=== PATIENT | female | born 1945 | race Caucasian/White ===

== ENCOUNTER 2017-04-15 04:23 | Inpatient (IN) | END 2017-04-19 20:35 | disposition home or self-care (01) | DRG 682 ==

== ENCOUNTER 2017-04-25 17:45 | Inpatient (IN) | END 2017-05-02 19:50 | disposition home or self-care (01) | DRG 291 ==

== ENCOUNTER 2017-08-08 09:52 | Emergency (ER) | END 2017-08-08 12:42 | disposition home or self-care (01) ==

== ENCOUNTER 2018-06-21 21:52 | Emergency (ER) | payer MEDICARE, OTHER ==
[~2018-06-21] VITALS: Ht 160 cm; Wt 78.0 kg
[~2018-06-21 21:52] MED LIST: ACET500C5 PO; APIX5TAB PO; LAS20 PO; LOSA25TA12 PO; METO-448 PO
[2018-06-21 22:22] VITALS: Ht 160 cm; Wt 78.0 kg
--- NOTE | 2018-06-21 22:35 | ERD ---
ER Documentation Chief Complaint Chief Complaint chest discomfort HPI The patient is a 72-year-old female, presenting to the ER because of right-sided intermittent chest discomfort with coughing, worse with movement. She denies any chest pain or discomfort at this time. She has had intermittent cough, nasal congestion, general body pain, sore throat and dysuria for the last couple days, denies neck pain, chest pain with vomiting/radiation/exertion/diaphoresis, dyspnea, abdominal pain, vomiting. She does not smoke nor drink Past medical history: Hypertension, asthma, history of proximal atrial fibrillation, history of CHF Past surgical history: None ROS All systems reviewed and are negative except as per history of present illness. Medications Home Meds Active Scripts Sulfamethoxazole/Trimethoprim* (Bactrim Ds* Tablet) 1 Each Tablet, 1 TAB PO BID, #14 TAB Prov:ODALYS RIBEIRO MD 06/22/18 Acetaminophen* (Tylenol*) 325 Mg Tablet, 2 TAB PO Q6 PRN for PAIN AND OR ELEVATED TEMP, #20 TAB Prov:ODALYS RIBEIRO MD 06/22/18 Sulfamethoxazole/Trimethoprim* (Bactrim Ds* Tablet) 1 Each Tablet, 1 TAB PO BID, #14 TAB Prov:ODALYS RIBEIRO MD 06/22/18 Acetaminophen* (Tylophen*) 500 Mg Capsule, 1 CAP PO Q6H PRN for PAIN AND OR ELEVATED TEMP, #20 CAP Prov:WENDY DIALLO PA-C 08/08/17 Metoprolol Tartrate* (Lopressor*) 25 Mg Tab, 12.5 MG PO BID for 30 Days, TAB Prov:JACKIE DRAKE 05/02/17 Furosemide (Lasix) 20 Mg Tab, 20 MG PO BID DIURETICS for 30 Days, TAB Prov:JACKIE DRAKE 05/02/17 Apixaban* (Eliquis*) 5 Mg Tablet, 5 MG PO BID for 30 Days, TAB Prov:JACKIE DRAKE 05/02/17 Reported Medications Losartan Potassium* (Losartan Potassium*) 25 Mg Tablet, 25 MG PO DAILY, TAB 04/25/17 Allergies Allergies: Coded Allergies: No Known Allergy (Unverified , 08/08/17) PMhx/Soc History of Surgery: No Anesthesia Reaction: No Hx Neurological Disorder: No Hx Respiratory Disorders: Yes (ASTHMA AND REACTIVE AIRWAY DZ) Hx Cardiac Disorders: Yes (HTN) Hx Psychiatric Problems: No Hx Miscellaneous Medical Probl: No Hx Alcohol Use: No Hx Substance Use: No Hx Tobacco Use: No Physical Exam Vitals Vital Signs Date Temp Pulse Resp B/P (MAP) Pulse Ox O2 O2 Flow FiO2 Time Delivery Rate 06/21/18 98.7 60 21 132/55 98 Room Air 22:44 (80) 06/21/18 98.7 59 24 187/89 95 22:22 (121) Physical Exam Const: No acute distress. Head: Atraumatic. Eyes: Normal Conjunctiva. ENT: Normal External Ears, Nose and Mouth. Neck: Full range of motion. No meningismus. Resp: Clear to auscultation bilaterally. Cardio: Regular rate and rhythm. Right-sided chest wall tenderness on palpation, no erythema/crepitus Abd: Soft, non distended, normal bowel sounds, non tender. Skin: No petechiae or rashes. Back: No midline or flank tenderness. Ext: No cyanosis, or edema. Neur: Awake and alert. No focal deficit Psych: Normal Mood and Affect. Result Diagram: 06/21/18229906/21/182299 Results 24 hrs Laboratory Tests Test 06/21/18 23:00 06/21/18 23:16 White Blood Count 9.8 10^3/ul Red Blood Count 4.37 10^6/ul Hemoglobin 12.0 g/dl Hematocrit 37.6 % Mean Corpuscular Volume 86.0 fl Mean Corpuscular Hemoglobin 27.5 pg Mean Corpuscular Hemoglobin Concent 31.9 g/dl Red Cell Distribution Width 13.2 % Platelet Count 201 10^3/UL Mean Platelet Volume 11.7 fl Immature Granulocytes % 0.500 % Neutrophils % 62.2 % Lymphocytes % 22.7 % Monocytes % 10.1 % Eosinophils % 4.1 % Basophils % 0.4 % Nucleated Red Blood Cells % 0.0 /100WBC Immature Granulocytes # 0.050 10^3/ul Neutrophils # 6.1 10^3/ul Lymphocytes # 2.2 10^3/ul Monocytes # 1.0 10^3/ul Eosinophils # 0.4 10^3/ul Basophils # 0.0 10^3/ul Nucleated Red Blood Cells # 0.0 10^3/ul Prothrombin Time 12.6 Sec Prothrombin Time Ratio 1.0 INR International Normalized Ratio 0.93 Activated Partial Thromboplast Time 31.7 Sec Sodium Level 136 mmol/L Potassium Level 4.2 mmol/L Chloride Level 101 mmol/L Carbon Dioxide Level 25 mmol/L Anion Gap 10 Blood Urea Nitrogen 33 mg/dl Creatinine 1.10 mg/dl Est Glomerular Filtrat Rate mL/min mL/min Glucose Level 98 mg/dl Calcium Level 8.8 mg/dl Troponin I < 0.012 ng/ml B-Type Natriuretic Peptide 557 PG/ML Bedside Urine pH (LAB) 5.5 Bedside Urine Protein (LAB) Negative Bedside Urine Glucose (UA) Negative Bedside Urine Ketones (LAB) Negative Bedside Urine Blood Trace-intact Bedside Urine Nitrite (LAB) Negative Bedside Urine Leukocyte Esterase (L 1+ Current Medications Medications Dose Sig/Fiordaliza Start Time Status Last (Trade) Ordered Route PRN Stop Time Admin Dose Reason Admin 650 mg ONCE ONCE 06/22/18 Acetaminophen PO 00:30 06/22/18 (Tylenol 00:31 Tab) Procedures/[place] [id number] Radiology Main Line: [phone] DIAGNOSTIC IMAGING REPORT Patient: HUDSON THAO : 1945 Age: 72 Sex: F MR #: [id number] DOS: 06/21/18 2256 Ordering MD: ODALYS RIBEIRO MD Location: E/R Room/Bed: PROCEDURE: XR Chest, 1 View CLINICAL INDICATION: Chest pain. TECHNIQUE: Frontal view of the chest. COMPARISON: None FINDINGS: LUNGS: No consolidative pulmonary infiltrates noted. PLEURAL SPACE: Unremarkable. No pneumothorax. HEART: Borderline cardiomegaly is noted. MEDIASTINUM: Unremarkable. BONES/JOINTS: Unremarkable. VASCULATURE: The thoracic aorta is tortuous and atherosclerotic. IMPRESSION: No acute cardiopulmonary disease demonstrated. RPTAT: [facility] Nora Camejo Physician Date Time Electronically viewed and signed by Nora Camejo Physician on 06/21/2018 23:57 [facility] [place]/ CC: ODALYS RIBEIRO MD [phone] EKG: Read by emergency physician Rate/Rhythm: Normal Sinus Rhythm 60 beats/min QRS, ST, T-waves: No ST elevation, no T inversion, sinus arrhythmia, nonspecific ST abnormality, artifacts Impression: Abnormal EKG MEDICAL MAKING DECISION: The patient is a 72-year-old female, presenting with acute right-sided chest wall pain, acute viral syndrome, acute cystitis, mild dehydration. She was treated with Tylenol 650 mg p.o. for pain with good response, is stable for outpatient follow-up. The differential diagnoses considered include but are not limited to acute coronary syndrome, acute myocardial infarction, pericarditis, pulmonary embolism, aortic dissection, pneumonia, pleural effusion, pneumothorax, GERD, chest wall pain. Departure Diagnosis: Primary Impression: Chest wall pain Additional Impressions: UTI (urinary tract infection) Viral syndrome Condition: Good Comments She was discharged with Bactrim DS and Tylenol and I discussed the findings with the patient. I advised the patient to follow-up with the primary physician in about 2-3 days, sooner if needed and return if any concern. Disclaimer: Inadvertent spelling and grammatical errors are likely due to EHR/dictation software use and do not reflect on the overall quality of patient care. Also, please note that the electronic time recorded on this note does not necessarily reflect the actual time of the patient encounter. ODALYS RIBEIRO MD Jun 21, 2018 22:35
[2018-06-22] MEDS ORDERED: SULF1TAB31 PO ×2 (00:04→00:13)
[2018-06-22] MEDS ORDERED: ACET325T33 PO (00:05)
[2018-06-22] MEDS ORDERED: ACETAMINOPHEN 325 MG TAB PO ONE (00:30)
[2018-06-22 00:43] VITALS: BP 133/57; PULSE 58; RESP 21
== END 2018-06-22 01:10 | disposition home or self-care (01) ==
LOC: E/R 21:52
DX: N39.0 Urinary tract infection, site not specified (principal); B34.9 Viral infection, unspecified; I11.0 Hypertensive heart disease with heart failure; I50.9 Heart failure, unspecified; J45.909 Unspecified asthma, uncomplicated
CPT/HCPCS: 36415; 71045; 80048; 81003; 83880; 84484; 85025; 85610; 85730

== ENCOUNTER 2018-09-06 19:39 | Emergency (ER) | payer MEDICARE ==
[~2018-09-06] VITALS: Ht 167.6 cm; Wt 77.8 kg
[~2018-09-06 19:39] MED LIST changes: +ACET325T33 PO; +SULF1TAB31 PO
[2018-09-06 19:41] VITALS: Ht 167.6 cm; Wt 77.8 kg
[2018-09-06] MEDS ORDERED: SOD CHLORIDE 0.9% 1,000 ML IV STA (20:49)
[2018-09-06] MEDS ORDERED: morphine 2 MG INJ IV STA (20:49)
[2018-09-06] MEDS ORDERED: ONDANSETRON 4 MG INJ IV STA (20:49)
[2018-09-06] MEDS ORDERED: LORAZEPAM 2 MG INJ IV ONE (21:00)
[2018-09-06] MEDS ORDERED: IOHEXOL 300MG/ML 150 ML BTL ONE (21:56)
[2018-09-06] MEDS ORDERED: SOD CHLORIDE 0.9% 100 ML ONE (21:56)
[2018-09-07] VITALS: BP 126/50; PULSE 58; RESP 15
[2018-09-07] MEDS ORDERED: PHEN-537 PO (00:04)
--- NOTE | 2018-09-11 06:58 | ERD ---
ER Documentation Chief Complaint Chief Complaint URINARY RETENTION, DISCOMFORT X'S 2 MONTHS HPI This is a 72-year-old male that presents to the emergency department with frequency urgency and dysuria has been present for 6 months. She has been seen by her primary care physician has had frequent urinary tract infections. She is not currently on antibiotics. She does indicate for the past 2 months she is felt as though there is been a bulge in the vaginal area that has been intermittent. She states she notices the bulge more when she is urinating. She denies any abnormal vaginal bleeding. She does indicate that she is experiencing mild lower abdominal tenderness. She states that there is no alleviating or exacerbating symptoms to the tenderness. It is a dull achy sensation. The pain is most prominent in the left lower quadrant. The pain does not radiate to the back. ROS All systems reviewed and are negative except as per history of present illness. Medications Home Meds Active Scripts Phenazopyridine Hcl* (Pyridium*) 100 Mg Tab, 100 MG PO TID PRN for URINARY PAIN, #20 TAB Prov:MANE MONTERO MD 09/07/18 Acetaminophen* (Tylenol*) 325 Mg Tablet, 2 TAB PO Q6 PRN for PAIN AND OR ELEVATED TEMP, #20 TAB Prov:ODALYS RIBEIRO MD 06/22/18 Metoprolol Tartrate* (Lopressor*) 25 Mg Tab, 12.5 MG PO BID for 30 Days, TAB Prov:JACKIE DRAKE 05/02/17 Furosemide (Lasix) 20 Mg Tab, 20 MG PO BID DIURETICS for 30 Days, TAB Prov:JACKIE DRAKE 05/02/17 Apixaban* (Eliquis*) 5 Mg Tablet, 5 MG PO BID for 30 Days, TAB Prov:JACKIE DRAKE 05/02/17 Reported Medications Losartan Potassium* (Losartan Potassium*) 25 Mg Tablet, 25 MG PO DAILY, TAB 04/25/17 Discontinued Scripts Sulfamethoxazole/Trimethoprim* (Bactrim Ds* Tablet) 1 Each Tablet, 1 TAB PO BID, #14 TAB Prov:ODALYS RIBEIRO MD 06/22/18 Sulfamethoxazole/Trimethoprim* (Bactrim Ds* Tablet) 1 Each Tablet, 1 TAB PO BID, #14 TAB Prov:ODALYS RIBEIRO MD 06/22/18 Acetaminophen* (Tylophen*) 500 Mg Capsule, 1 CAP PO Q6H PRN for PAIN AND OR ELEVATED TEMP, #20 CAP Prov:WENDY DIALLO PA-C 08/08/17 Allergies Allergies: Coded Allergies: No Known Allergy (Unverified , 09/06/18) PMhx/Soc History of Surgery: No Anesthesia Reaction: No Hx Neurological Disorder: No Hx Respiratory Disorders: Yes (ASTHMA AND REACTIVE AIRWAY DZ) Hx Cardiac Disorders: Yes (HTN) Hx Psychiatric Problems: No Hx Miscellaneous Medical Probl: No Hx Alcohol Use: No Hx Substance Use: No Hx Tobacco Use: No Smoking Status: Never smoker Physical Exam Physical Exam Constitutional:Well-developed. Well-nourished. HEENT:Normocephalic. Atraumatic.Pupils were equal round reactive to light. Moist mucous membranes.No tonsillar exudates. Neck: No nuchal rigidity. No lymphadenopathy. No posterior cervical spine tenderness or step-offs. Respiratory: Not using accessory muscles of respiration.Lungs were clear to auscultation bilaterally. No rhonchi. No rales. No wheezing. Cardiovascular: Regular rate regular rhythm.No murmurs. No rubs were appreciated.S1, S2 normal. Distal pulses are palpable 2+ bilaterally. GI: Abdomen was soft. Left lower quadrant tenderness. Non Distended. No pulsatile abdominal masses or bruits. No rebound. No guarding. Bowel sounds were present and normal. : External genital area was evaluated by myself with her daughter present in a female nurse cell cleaner. There is no evidence of uterine prolapse. No abnormal findings of the external genital area. Muscle skeletal: Full range of motion of both the upper and lower extremities bilaterally.Normal muscle tone.No assymetrical calf tenderness or swelling. Skin: No petechia, no purpura. No lesions on the palms or the soles of the feet. No maculopapular rash. NEURO: Patient was alert, awake, orientated x3.No facial droop. Gait observed and normal with no ataxia.Speech had regular rate and rhythm. No focal neurological deficits. Results 24 hrs Laboratory Tests Test 09/06/18 20:32 White Blood Count 10.0 10^3/ul Red Blood Count 4.60 10^6/ul Hemoglobin 12.6 g/dl Hematocrit 39.7 % Mean Corpuscular Volume 86.3 fl Mean Corpuscular Hemoglobin 27.4 pg Mean Corpuscular Hemoglobin Concent 31.7 g/dl Red Cell Distribution Width 14.1 % Platelet Count 230 10^3/UL Mean Platelet Volume 11.3 fl Immature Granulocytes % 0.200 % Neutrophils % 62.6 % Lymphocytes % 27.0 % Monocytes % 8.1 % Eosinophils % 1.6 % Basophils % 0.5 % Nucleated Red Blood Cells % 0.0 /100WBC Immature Granulocytes # 0.020 10^3/ul Neutrophils # 6.2 10^3/ul Lymphocytes # 2.7 10^3/ul Monocytes # 0.8 10^3/ul Eosinophils # 0.2 10^3/ul Basophils # 0.1 10^3/ul Nucleated Red Blood Cells # 0.0 10^3/ul Prothrombin Time 12.0 Sec Prothrombin Time Ratio 0.9 INR International Normalized Ratio 0.88 Activated Partial Thromboplast Time 30.5 Sec Urine Color YELLOW Urine Clarity CLEAR Urine pH 5.0 Urine Specific [place] 1.013 Urine Ketones NEGATIVE mg/dL Urine Nitrite NEGATIVE mg/dL Urine Bilirubin NEGATIVE mg/dL Urine Urobilinogen NEGATIVE mg/dL Urine Leukocyte Esterase 1+ R[place]ll/ul Urine Microscopic RBC 1 /HPF Urine Microscopic WBC 4 /HPF Urine Hemoglobin NEGATIVE mg/dL Urine Glucose NEGATIVE mg/dL Urine Total Protein NEGATIVE mg/dl Sodium Level 137 mmol/L Potassium Level 4.8 mmol/L Chloride Level 102 mmol/L Carbon Dioxide Level 28 mmol/L Anion Gap 7 Blood Urea Nitrogen 22 mg/dl Creatinine 1.00 mg/dl Est Glomerular Filtrat Rate mL/min mL/min Glucose Level 106 mg/dl Calcium Level 8.6 mg/dl Total Bilirubin 0.3 mg/dl Direct Bilirubin 0.00 mg/dl Indirect Bilirubin 0.3 mg/dl Aspartate Amino Transf (AST/SGOT) 27 IU/L Alanine Aminotransferase (ALT/SGPT) 11 IU/L Alkaline Phosphatase 137 IU/L Troponin I < 0.012 ng/ml Total Protein 7.9 g/dl Albumin 4.2 g/dl Globulin 3.70 g/dl Albumin/Globulin Ratio 1.13 Amylase Level 69 U/L Lipase 79 U/L Current Medications Medications Dose Sig/Fiordaliza Start Time Status Last (Trade) Ordered Route PRN Stop Time Admin Dose Reason Admin Lorazepam 1 mg ONCE ONCE 09/06/18 Cancel (Ativan) IV 21:00 09/06/18 21:01 Sodium 1,000 ml @ Q1H STAT 09/06/18 DC 09/06/18 Chloride 1,000 mls/hr IV 20:49 20:55 09/06/18 21:48 Morphine 2 mg ONCE STAT 09/06/18 DC 09/06/18 Sulfate IV 20:49 20:55 (morphine) 09/06/18 20:51 Ondansetron 4 mg ONCE STAT 09/06/18 DC 09/06/18 HCl (Zofran IV 20:49 20:55 Inj) 09/06/18 20:51 IV Flush 10 ml STK-MED 09/06/18 DC (NS 10 ml) ONCE .ROUTE 21:56 09/06/18 21:57 Sodium 100 ml @ ud STK-MED 09/06/18 DC Chloride ONCE .ROUTE 21:56 09/06/18 21:57 Iohexol 150 ml STK-MED 09/06/18 DC (Omnipaque ONCE .ROUTE 21:56 300mg/ ml) 09/06/18 21:57 Procedures/MDM This patient presented to the emergency department with abdominal pain and was seen and evaluated by myself. My differential diagnosis included but was not limited to abdominal aortic aneurysm, appendicitis, pancreatitis, perforated peptic ulcer, perforated viscus, Boerhaaves syndrome or visceral pain such as diverticulitis, DKA, esophagitis, hepatitis or bowel obstruction. The patient was placed on a rotating equipment engineer, continuous pulse oximetry, and IV access was established by nursing staff. The patient received intravenous morphine and Zofran. There is no evidence of urinary tract infection. Due to the prolonged symptoms of the patient's abdominal pain and urinary discomfort I do feel is necessary to obtain a CT scan of the abdomen. This was reviewed by myself the radiologist and indicate the following: No evidence of urolithiasis, obstructive uropathy or diverticulitis. Normal appendix Mild cardiomegaly. Vascular calcifications. 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 I obtained a 12-lead EKG tracing to rule for atypical myocardial fraction. 12 Lead EKG tracing ordered and reviewed by myself showed: Normal sinus rhythm of 52 bpm and no arrhythmia. OR interval normal. QRS duration normal. No ST segment elevation No ST segment depression. No changes consistent with acute ischemia. Indicates the patient did not have an exact etiology into her symptoms. I did feel that she would benefit from seeing her SCRIPT WRITER for further evaluation. Her daughter stated they will be able to follow-up on an outpatient basis shortly. The patient was discharged home in fair condition. They were instructed to return to the emergency department at any time if there was any worsening of their condition. The patient stated they would follow up with their PCP in the next 24-48 hours to initiate a suitable medication regimen under the care of their PCP as well as to allow their PCP to monitor any drug reactions. The patient was discharged home with prescriptions after they gave informed consent to the new medication. They were also fully informed by myself on the adverse effects and adverse drug interactions in order to provide adequate safeguards to prevent possible adverse reactions to medications. Departure Diagnosis: Primary Impression: Genitourinary symptoms Additional Impression: Abdominal pain Abdominal location: left lower quadrant Qualified Codes: R10.32 - Left lower quadrant pain Condition: Fair Patient Instructions: Dysuria, Uncertain Cause (Adult) Referrals: [facility] (PCP) MANE MONTERO MD Sep 11, 2018 06:58
== END 2018-09-07 00:14 | disposition home or self-care (01) ==
LOC: E/R 19:39
DX: R10.32 Left lower quadrant pain (principal); J45.909 Unspecified asthma, uncomplicated; I10 Essential (primary) hypertension
CPT/HCPCS: 74177; 80053; 81001; 82150; 83690; 84484; 85025; 85610; 85730; 87086; 93005; 96374; 96375; 99285; J2270; J2405; J7030; Q9967